=== PATIENT | male | born 1995 ===

== ENCOUNTER 2018-12-15 11:35 | Emergency (ER) | payer OTHER ==
[~2018-12-15] VITALS: Ht 180.3 cm; Wt 63.5 kg
[~2018-12-15 11:35] MED LIST: [UNRECOGNIZED DRUG - OTHER]
== END 2018-12-15 18:25 | disposition home or self-care (01) ==
LOC: ER 11:35
DX: B96.0 Mycoplasma pneumoniae [M. pneumoniae] as the cause of diseases classified elsewhere (principal); B34.9 Viral infection, unspecified